=== PATIENT | male | born 1955 | race Caucasian/White ===

== ENCOUNTER 2023-12-18 22:50 | Emergency (ER) | payer MEDICARE, MEDICAID ==
[~2023-12-18] VITALS: Ht 172.7 cm; Wt 104.3 kg
[2023-12-18] MEDS ORDERED: KETOROLAC TROMETHAMINE 15 MG INJ ONE (23:48)
[2023-12-19] MEDS ORDERED: KETOROLAC TROMETHAMINE 15 MG INJ IM ONE
[2023-12-19] MEDS ORDERED: NAPR-1192 PO (00:35)
[2023-12-19] MEDS ORDERED: ACET325T53 PO (00:35)
[2023-12-19 01:07] VITALS: BP 148/98; O2SAT 98
== END 2023-12-19 01:07 | disposition home or self-care (01) ==
LOC: ER 22:56
DX: M25.562 Pain in left knee (principal); E78.5 Hyperlipidemia, unspecified; K21.9 Gastro-esophageal reflux disease without esophagitis; Z79.899 Other long term (current) drug therapy
CPT/HCPCS: 99283; 73564; 96372; J1885; A4606; A4663